=== PATIENT | male | born 1935 | race Caucasian/White ===

== ENCOUNTER → 2016-09-03 | Day surgery (SDC) | payer MEDICARE, BC ==
[~2016-09-03] MED LIST: CADU10TA2 PO; CELE200 PO; COUM5TAB PO; GLUCTAB; LACTATED RINGER'S 1000 ML INJ 1,000 ML ONE; OXYC-360 PO; PROPOFOL 500 MG/50 ML BTL IV ONE; TEKT150T PO
== END | disposition home or self-care (01) ==
LOC: ESDC 09:04
PROVIDERS: ATTEND Internal Medicine Gastroenterology
DX: Z12.11 Encounter for screening for malignant neoplasm of colon (principal); Z86.010 Personal history of colon polyps; D12.3 Benign neoplasm of transverse colon; K57.90 Diverticulosis of intestine, part unspecified, without perforation or abscess without bleeding
CPT/HCPCS: 00810; 45380; 45385; 88305; J7120